=== PATIENT | male | born 1980 | race Caucasian/White ===

== ENCOUNTER 2018-12-22 16:38 | Emergency (ER) | payer SELFPAY ==
[~2018-12-22] VITALS: Ht 188 cm; Wt 108.0 kg
[~2018-12-22 16:38] MED LIST: DIAZ5TAB PO; DOCU-131 PO; ENOX40SY4 SQ; INDO25CA5 PO; OXYC-307 PO; OXYC10TA6 PO
--- NOTE | 2018-12-22 17:35 | NUR ---
PT MOVED ROOMS TO 38 WITH SITTER. ALL BELONGINGS IN LOCKER, 2 BAGS LABELED WITH PT STICKER, PT DENIES SI AT THIS TIME. WOULD LIKE LEG AND THROAT CHECKED WHILE HE IS HERE. PT TEAFUL BUT IN NAD. REPORT GIVEN TO BAMBI FOX.
--- NOTE | 2018-12-22 17:36 | NUR ---
Pt moved to room 38. Report from Blaise FOX. Pt is alert, oriented, with NAD. Pt is connected to the monitor. Call light within reach.
[2018-12-22 17:41] VITALS: BP 123/82
--- NOTE | 2018-12-22 17:47 | NUR ---
Provider at bedside.
--- NOTE | 2018-12-22 18:16 | NUR ---
Pt left AMA
== END 2018-12-22 18:18 | disposition left against medical advice (07) ==
LOC: ED 18:12
DX: F11.129 Opioid abuse with intoxication, unspecified (principal); E11.9 Type 2 diabetes mellitus without complications; Z72.9 Problem related to lifestyle, unspecified
CPT/HCPCS: 87070; 99283

== ENCOUNTER 2019-10-02 12:51 | Inpatient (IN) | payer OTHER ==
[~2019-10-02] VITALS: Ht 188 cm; Wt 123.0 kg
[~2019-10-02 12:51] MED LIST changes: +ETOMIDATE 20 MG/10 ML ONE; +INDO25CA22 PO; -INDO25CA5 PO; +PROPOFOL 10 MG/ML, 20ML ONE; +PROPOFOL 100 ML IV ONE; +SUCCINYLCHOLINE 20 MG/ML, 10ML ONE
[2019-10-02] MEDS ORDERED: SODIUM CHLORIDE FLUSH 10ML SYR IVF ONE (13:00)
[2019-10-02 13:13] LABS: MEAN CORPUSCULAR HEMOGLOBIN 30.8 pg (27.5-34.5); MEAN CORPUSCULAR HGB CONC 33.3 g/dL (33.2-36.2); MEAN CORPUSCULAR VOLUME 92.4 fL (81-97); MEAN PLATELET VOLUME 7.8 fL (7.4-10.4); PLATELET COUNT 286 x10^3/uL (130-400); RED BLOOD COUNT 5.59 x10^6/uL (4.38-5.82); RED CELL DISTRIBUTION WIDTH 12.7 % (9.4-14.8)
[2019-10-02 13:20] LABS: INTERNATIONAL NORMALIZED RATIO 0.98 (0.93-1.1); PROTHROMBIN TIME 10.3 Seconds (9.6-11.5)
[2019-10-02 13:24] LABS: ALANINE AMINOTRANSFERASE 53 U/L (12-78); ALBUMIN 3.7 g/dL (3.4-5.0); ANION GAP 12 mmol/L (5-15); CALCIUM 8.5 mg/dL (8.5-10.1); CHLORIDE 100 mmol/L (98-107); CREATININE 1.27 mg/dL (0.7-1.3)
[2019-10-02 13:28] LABS: ALKALINE PHOSPHATASE 88 U/L (45-117); BILIRUBIN,TOTAL 0.4 mg/dL (0.2-1.0); TOTAL PROTEIN 7.7 g/dL (6.4-8.2); TROPONIN I < 0.015 ng/mL (0.000-0.045)
[2019-10-02] MEDS ORDERED: MIDAZOLAM HCL 50 MG in SODIUM CHLORIDE 0.9% 240 ML IV PRN (13:30)
[2019-10-02] MEDS ORDERED: SUCCINYLCHOLINE 20 MG/ML, 10ML IVPush ONE (13:30)
[2019-10-02] MEDS ORDERED: ETOMIDATE 20 MG/10 ML IVPush ONE (13:30)
[2019-10-02 13:36] LABS: BASOPHILS # (AUTO) 0.07 x10^3/uL (0-0.1); BASOPHILS % (AUTO) 1 % (0-1); EOSINOPHILS # (AUTO) 0.42 x10^3/uL (0-0.4); EOSINOPHILS % (AUTO) 3 % (1-7); LYMPHOCYTES # (AUTO) 6.16 x10^3/uL (1-3.4); LYMPHOCYTES % (AUTO) 48 % (22-44); MD SCAN; MONOCYTES # (AUTO) 0.84 x10^3/uL (0.2-0.8); MONOCYTES % (AUTO) 7 % (2-9); NEUTROPHILS # (AUTO) 5.29 x10^3/uL (1.8-6.8); NEUTROPHILS % (AUTO) 41 % (42-75)
[2019-10-02] MEDS: PROPOFOL 100 ML IV PRN ×3 (13:45→21:02)
--- NOTE | 2019-10-02 13:51 | NUR ---
Note undone in EDM - 10/02/19 at 1359 by RFRUHLING PT ARRIVES TO ED VIA PRIVATE VEHICLE WITH SPOUSE. PTS SPOUSE REPORTED FINDING PARTNER DOWN AND GIVING NARCAN, NO COMPRESSIONS GIVEN AT HOME. PT WAS SOME WHAT RESPONISVE WITH NARCAN PUSHES BUT WAS HAVING DIFFICULTY BREATHING WITH A GCS OF 10. PT ALSO WAS COVERED IN EMESIS AND CONTINUED TO HAVE EMESIS. PT WAS DIAPHORETIC AND RED IN THE FACE ON ARRIVAL. PT WAS TAKEN TO [place] [id number] WHERE HE WAS GIVEN SUPPLEMENTAL OXYGEN BUT WAS UNABLE TO CORRECT BREATHING SO DR. JACKSON DECIDED TO INBUATE WITH A 8.0 TUBE SECURED AT 24CM. SEDATION USED WAS 100MG SUCCULYINE AND 20MG ETOMIDATE PT ALSO HAD A RAM CATH PLACED FOR STRICT. PT AFTER INTUBATION NEEDED SOME SEDATION WHICH DR. NUÑEZ PROVIDED 3X100 MG PROPAFOL PUSHES AND 5MG OF VERSED PUSH UNTIL A PROPOFOL AND VERSED DRIP WAS STARTED. PT THEN HAD MEDICAL RESTRIANTS APPLIED. PT HAS FLUIDS RUNNING. PTS VENT SETTINGS ARE AT 100%O2/16AC/55P/500TV/8PEEP. PT ALSO HAD TWO LARGE BORE PIVS PLACED IN BILATERAL AC AFTER INTIAL AC IV INFILTRATED.
--- NOTE | 2019-10-02 13:51 | NUR ---
PT ARRIVES TO ED VIA PRIVATE VEHICLE WITH SPOUSE. PTS SPOUSE REPORTED FINDING PARTNER DOWN AND GIVING NARCAN, NO COMPRESSIONS GIVEN AT HOME. PT WAS SOME WHAT RESPONISVE WITH NARCAN PUSHES BUT WAS HAVING DIFFICULTY BREATHING WITH A GCS OF 10. PT ALSO WAS COVERED IN EMESIS AND CONTINUED TO HAVE EMESIS. PT WAS DIAPHORETIC AND RED IN THE FACE ON ARRIVAL. PT WAS TAKEN TO [place] [id number] WHERE HE WAS GIVEN SUPPLEMENTAL OXYGEN BUT WAS UNABLE TO CORRECT BREATHING SO DR. JACKSON DECIDED TO INBUATE WITH A 8.0 TUBE SECURED AT 24CM. SEDATION USED WAS 100MG SUCCULYINE AND 20MG ETOMIDATE PT ALSO HAD A RAM CATH PLACED FOR STRICT. PT AFTER INTUBATION NEEDED SOME SEDATION WHICH DR. NUÑEZ PROVIDED 3X100 MG PROPAFOL PUSHES AND 5MG OF VERSED PUSH UNTIL A PROPOFOL AND VERSED DRIP WAS STARTED. PT THEN HAD MEDICAL RESTRIANTS APPLIED. PT HAS FLUIDS RUNNING. PTS VENT SETTINGS ARE AT 100%O2/16AC/55P/500TV/8PEEP. PT ALSO HAD TWO LARGE BORE PIVS PLACED IN BILATERAL AC AFTER INTIAL AC IV INFILTRATED.
[2019-10-02] MEDS ORDERED: FAMOTIDINE 20 MG/2 ML IV ONE (14:00)
[2019-10-02] MEDS ORDERED: SODIUM CHLORIDE 0.9% 1,000ML IVBOLUS ONE (14:00)
[2019-10-02] MEDS ORDERED: FAMOTIDINE 20 MG/2 ML ONE (14:15)
[2019-10-02] MEDS ORDERED: BIVALIRUDIN 250 MG ONE (14:58)
[2019-10-02] MEDS ORDERED: TICAGRELOR 90 MG TABLET ONE (14:58)
[2019-10-02] MEDS ORDERED: HEPARIN 1,000 UNITS/ML, 10ML ONE (14:58)
[2019-10-02] MEDS ORDERED: MIDAZOLAM 1 MG/ML, 5ML ONE (14:58)
[2019-10-02] MEDS ORDERED: FENTANYL PF 100 MCG/2ML ONE (14:58)
--- NOTE | 2019-10-02 14:58 | NUR ---
PT TRANSPORTED TO CCU, LINES AND DRIPS VERIFIED, PT HAD NEGATIVE TROP DOWNSTAIRS. PT TO HAVE NEW EKG FOR POSSIBLE NEW OH. CARE TRANSFERED NOW TO [facility].
[2019-10-02] MEDS ORDERED: LIDOCAINE 1%, 20ML ONE (14:59)
[2019-10-02] MEDS ORDERED: ENALAPRILAT 1.25 MG/ML, 2ML IVPush PRN (15:00)
[2019-10-02] MEDS ORDERED: BISACODYL 10 MG SUPP PR PRN ×2 (15:00→17:00)
[2019-10-02] MEDS ORDERED: ONDANSETRON 2MG/ML, 2ML IVPush PRN (15:00)
[2019-10-02] MEDS ORDERED: LABETALOL 5MG/ML, 20ML IVPush PRN (15:00)
[2019-10-02] MEDS ORDERED: POLYETHYLENE GLYCOL 17 GM PACKET PO PRN (15:00)
[2019-10-02] MEDS ORDERED: LORazepam 2 MG/ML, 1ML IVPush PRN (15:00)
[2019-10-02] MEDS ORDERED: PROPOFOL 100 ML IV ONE (15:19)
[2019-10-02 15:38] LABS: TROPONIN I < 0.015 ng/mL (0.000-0.045)
[2019-10-02 15:45] LABS: SALICYLATE LEVEL < 1.7 mg/dL (2.8-20.0)
[2019-10-02] MEDS ORDERED: SODIUM CHLORIDE 0.9% 1,000 ML IV SCH (15:45)
[2019-10-02 16:14] LABS: HEMOGLOBIN A1C 7.1 % (4.2-6.3)
[2019-10-02] MEDS: SODIUM CHLORIDE 0.9% 1,000 ML IV SCH (16:34)
[2019-10-02] MEDS: CEFTRIAXONE PMX 1GM/50ML 50 ML IV SCH (16:34)
[2019-10-02] MEDS: METRONIDAZOLE PMX 500MG/100ML 100 ML IV SCH ×2 (16:34→23:01)
[2019-10-02] MEDS ORDERED: DEXTROSE 4 GM TAB.CHEW PO PRN (17:00)
[2019-10-02] MEDS ORDERED: FUROSEMIDE 20 MG/2 ML IV ONE (17:00)
[2019-10-02] MEDS ORDERED: DEXTROSE 50%, 50ML SYRINGE IVPush PRN (17:00)
[2019-10-02] MEDS ORDERED: SENNA 176 MG/5 ML ORAL SOL NG PRN (17:00)
[2019-10-02] MEDS ORDERED: PHARMACY MAY ADJ FOR RENAL FX MC SCH (17:00)
[2019-10-02] MEDS ORDERED: LIDOCAINE-MPF 1%, 2ML ENDO PRN (17:00)
[2019-10-02] MEDS ORDERED: GLUCAGON 1 MG IM PRN (17:00)
[2019-10-02] MEDS ORDERED: SENNA/DOCUSATE TABLET NG PRN (17:00)
[2019-10-02] MEDS ORDERED: PROPOFOL 10 MG/ML, 20ML IV ONE (17:00)
[2019-10-02] MEDS ORDERED: LACTULOSE 20 GM/30 ML UDC NG PRN (17:00)
[2019-10-02] MEDS ORDERED: HEPARIN 5,000 UNITS/ML, 1ML SQ SCH (17:00)
[2019-10-02 17:18] LABS: PROTHROMBIN TIME 10.5 Seconds (9.6-11.5)
[2019-10-02 17:19] LABS: ANION GAP 6 mmol/L (5-15); CALCIUM 7.8 mg/dL (8.5-10.1); CHLORIDE 109 mmol/L (98-107); CREATININE 0.92 mg/dL (0.7-1.3); TRIGLYCERIDES 722 mg/dL (50-200)
[2019-10-02 17:28] LABS: BASOPHILS # (AUTO) 0.01 x10^3/uL (0-0.1); BASOPHILS % (AUTO) 0 % (0-1); EOSINOPHILS # (AUTO) 0.02 x10^3/uL (0-0.4); EOSINOPHILS % (AUTO) 0 % (1-7); LYMPHOCYTES # (AUTO) 0.72 x10^3/uL (1-3.4); LYMPHOCYTES % (AUTO) 9 % (22-44); MD SCAN; MEAN CORPUSCULAR HEMOGLOBIN 30.2 pg (27.5-34.5); MEAN CORPUSCULAR HGB CONC 33.6 g/dL (33.2-36.2); MEAN CORPUSCULAR VOLUME 89.9 fL (81-97); MONOCYTES # (AUTO) 0.19 x10^3/uL (0.2-0.8); MONOCYTES % (AUTO) 2 % (2-9); NEUTROPHILS # (AUTO) 7.49 x10^3/uL (1.8-6.8); NEUTROPHILS % (AUTO) 89 % (42-75); PLATELET COUNT 223 x10^3/uL (130-400); RED BLOOD COUNT 5.74 x10^6/uL (4.38-5.82); RED CELL DISTRIBUTION WIDTH 12.7 % (9.4-14.8)
[2019-10-02] MEDS: ENOXAPARIN 40 MG/0.4 ML SQ SCH (17:42)
[2019-10-02 17:50] LABS: MICROSCOPIC INDICATED
[2019-10-02] MEDS: INSULIN LISPRO 100 UNITS/ML, PEN SQ-INSULIN SCH ×2 (17:51→20:55)
[2019-10-02 17:59] LABS: CULTURE INDICATED? YES
[2019-10-02 18:02] LABS: AMPHETAMINE SCREEN, URINE Negative (Negative); BARBITURATE SCREEN, URINE Negative (Negative); BENZODIAZEPINE SCREEN, URINE Positive (Negative); CANNABINOID SCREEN, URINE Negative (Negative); COCAINE SCREEN, URINE Negative (Negative); METHADONE SCREEN, URINE Negative (Negative)
[2019-10-02 18:03] LABS: OPIATE SCREEN, URINE Positive (Negative)
[2019-10-02] MEDS: ALBUTEROL/IPRATROPIUM 2.5MG/0.5MG, 3 ML INLINE SCH ×2 (19:00→22:14)
[2019-10-02] MEDS: SODIUM CHLORIDE FLUSH 10ML SYR IVF SCH (20:49)
[2019-10-02] MEDS: INSULIN GLARGINE 100 UNITS/ML, PEN SQ-INSULIN SCH (20:56)
[2019-10-02] MEDS: FAMOTIDINE 20 MG/2 ML IVPush SCH (21:01)
[2019-10-03] MEDS: PROPOFOL 100 ML IV PRN ×8 (00:50→22:06)
[2019-10-03] MEDS: ALBUTEROL/IPRATROPIUM 2.5MG/0.5MG, 3 ML INLINE SCH ×6 (01:56→22:18)
[2019-10-03] MEDS: SODIUM CHLORIDE 0.9% 1,000 ML IV SCH ×3 (02:59→23:16)
[2019-10-03] MEDS: INSULIN LISPRO 100 UNITS/ML, PEN SQ-INSULIN SCH ×4 (03:04→20:59)
[2019-10-03] MEDS: MIDAZOLAM HCL 25 MG in SODIUM CHLORIDE 0.9% 245 ML IV PRN ×2 (03:35→19:37)
[2019-10-03 04:25] LABS: ALANINE AMINOTRANSFERASE 45 U/L (12-78); ALBUMIN 2.6 g/dL (3.4-5.0); ANION GAP 6 mmol/L (5-15); CALCIUM 7.2 mg/dL (8.5-10.1); CHLORIDE 108 mmol/L (98-107); CREATININE 0.98 mg/dL (0.7-1.3)
[2019-10-03 04:28] LABS: ALKALINE PHOSPHATASE 52 U/L (45-117); BILIRUBIN,TOTAL 0.6 mg/dL (0.2-1.0); CHOL/HDL RATIO 6.5; CHOLESTEROL, TOTAL 168 mg/dL (140-239); HDL CHOL % 15 % (26-37); HDL CHOLESTEROL (DIRECT) 26 mg/dL (40-60); TOTAL PROTEIN 5.7 g/dL (6.4-8.2); TRIGLYCERIDES 621 mg/dL (50-200)
[2019-10-03 04:31] LABS: MEAN CORPUSCULAR HEMOGLOBIN 30.5 pg (27.5-34.5); MEAN CORPUSCULAR HGB CONC 33.7 g/dL (33.2-36.2); MEAN CORPUSCULAR VOLUME 90.5 fL (81-97); MEAN PLATELET VOLUME 7.6 fL (7.4-10.4); PLATELET COUNT 189 x10^3/uL (130-400); RED BLOOD COUNT 5.08 x10^6/uL (4.38-5.82)
[2019-10-03 04:49] LABS: BASOPHILS # (AUTO) 0.02 x10^3/uL (0-0.1); BASOPHILS % (AUTO) 0 % (0-1); EOSINOPHILS # (AUTO) 0.06 x10^3/uL (0-0.4); EOSINOPHILS % (AUTO) 1 % (1-7); LYMPHOCYTES # (AUTO) 0.88 x10^3/uL (1-3.4); LYMPHOCYTES % (AUTO) 8 % (22-44); MD SCAN; MONOCYTES # (AUTO) 0.52 x10^3/uL (0.2-0.8); MONOCYTES % (AUTO) 5 % (2-9); NEUTROPHILS # (AUTO) 9.19 x10^3/uL (1.8-6.8); NEUTROPHILS % (AUTO) 86 % (42-75)
[2019-10-03] MEDS: METRONIDAZOLE PMX 500MG/100ML 100 ML IV SCH ×2 (06:31→16:37)
[2019-10-03] MEDS ORDERED: MAGNESIUM SULFATE IN WATER 50 ML IV ONE (07:30)
[2019-10-03] MEDS ORDERED: MAGNESIUM SULFATE PMX 4GM/100M 100 ML IVPB ONE (07:30)
[2019-10-03] MEDS: ENOXAPARIN 40 MG/0.4 ML SQ SCH (09:43)
[2019-10-03] MEDS: SENNA/DOCUSATE TABLET PO SCH (09:43)
[2019-10-03] MEDS: SODIUM CHLORIDE FLUSH 10ML SYR IVF SCH ×2 (09:44→20:58)
[2019-10-03] MEDS: ASPIRIN 81 MG TABLET CHEW PO SCH (09:44)
[2019-10-03] MEDS: FAMOTIDINE 20 MG/2 ML IVPush SCH ×2 (09:44→20:59)
--- NOTE | 2019-10-03 10:22 | NUR ---
TF GOAL: w/ propofol: VITAL HIGH PROTEIN @ 70ml/hr off propofol: 75ml/hr
[2019-10-03] MEDS: FENTANYL PF 100 MCG/2ML IVPush PRN ×4 (11:13→22:08)
[2019-10-03] MEDS: INSULIN GLARGINE 100 UNITS/ML, PEN SQ-INSULIN SCH ×2 (11:18→20:59)
[2019-10-03 14:20] LABS: MICROSCOPIC AUTO
[2019-10-03] MEDS: CEFTRIAXONE PMX 1GM/50ML 50 ML IV SCH (16:37)
[2019-10-04] MEDS: PROPOFOL 100 ML IV PRN ×8 (00:52→22:18)
[2019-10-04] MEDS: METRONIDAZOLE PMX 500MG/100ML 100 ML IV SCH ×3 (01:53→17:16)
[2019-10-04] MEDS: INSULIN LISPRO 100 UNITS/ML, PEN SQ-INSULIN SCH ×4 (02:41→21:01)
[2019-10-04] MEDS: ALBUTEROL/IPRATROPIUM 2.5MG/0.5MG, 3 ML INLINE SCH ×6 (03:00→22:03)
[2019-10-04] MEDS: MIDAZOLAM HCL 25 MG in SODIUM CHLORIDE 0.9% 245 ML IV PRN ×2 (04:45→22:31)
[2019-10-04 08:09] LABS: BASOPHILS # (AUTO) 0.05 x10^3/uL (0-0.1); BASOPHILS % (AUTO) 1 % (0-1); EOSINOPHILS # (AUTO) 0.41 x10^3/uL (0-0.4); EOSINOPHILS % (AUTO) 5 % (1-7); LYMPHOCYTES # (AUTO) 1.12 x10^3/uL (1-3.4); LYMPHOCYTES % (AUTO) 15 % (22-44); MD NO; MEAN CORPUSCULAR HEMOGLOBIN 30.3 pg (27.5-34.5); MEAN CORPUSCULAR HGB CONC 33.5 g/dL (33.2-36.2); MEAN CORPUSCULAR VOLUME 90.7 fL (81-97); MEAN PLATELET VOLUME 7.3 fL (7.4-10.4); MONOCYTES # (AUTO) 0.46 x10^3/uL (0.2-0.8); MONOCYTES % (AUTO) 6 % (2-9); NEUTROPHILS # (AUTO) 5.63 x10^3/uL (1.8-6.8); NEUTROPHILS % (AUTO) 73 % (42-75); PLATELET COUNT 157 x10^3/uL (130-400); RED BLOOD COUNT 4.16 x10^6/uL (4.38-5.82); RED CELL DISTRIBUTION WIDTH 13.3 % (9.4-14.8)
[2019-10-04] MEDS: SODIUM CHLORIDE FLUSH 10ML SYR IVF SCH ×2 (08:28→21:01)
[2019-10-04] MEDS: SENNA/DOCUSATE TABLET PO SCH (08:28)
[2019-10-04] MEDS: FAMOTIDINE 20 MG/2 ML IVPush SCH ×2 (08:28→21:00)
[2019-10-04] MEDS: ASPIRIN 81 MG TABLET CHEW PO SCH (08:28)
[2019-10-04 08:40] LABS: ALANINE AMINOTRANSFERASE 38 U/L (12-78); ALBUMIN 2.3 g/dL (3.4-5.0); ANION GAP 5 mmol/L (5-15); CHLORIDE 110 mmol/L (98-107); CREATININE 0.67 mg/dL (0.7-1.3)
[2019-10-04 08:43] LABS: ALKALINE PHOSPHATASE 52 U/L (45-117); BILIRUBIN,TOTAL 0.3 mg/dL (0.2-1.0); TOTAL PROTEIN 5.7 g/dL (6.4-8.2)
[2019-10-04] MEDS: INSULIN GLARGINE 100 UNITS/ML, PEN SQ-INSULIN SCH ×2 (09:47→21:01)
[2019-10-04] MEDS ORDERED: SODIUM PHOSPHATE 20 MMOL in SODIUM CHLORIDE 0.9% 500 ML IV ONE (10:00)
[2019-10-04] MEDS: CEFTRIAXONE PMX 1GM/50ML 50 ML IV SCH (14:48)
[2019-10-04] MEDS: ENOXAPARIN 40 MG/0.4 ML SQ SCH (14:58)
[2019-10-04] MEDS: FENTANYL PF 100 MCG/2ML IVPush PRN (17:51)
[2019-10-05] MEDS: METRONIDAZOLE PMX 500MG/100ML 100 ML IV SCH ×3 (01:28→18:17)
[2019-10-05] MEDS: PROPOFOL 100 ML IV PRN ×7 (01:30→23:33)
[2019-10-05] MEDS: ALBUTEROL/IPRATROPIUM 2.5MG/0.5MG, 3 ML INLINE SCH ×6 (03:00→22:30)
[2019-10-05] MEDS: INSULIN LISPRO 100 UNITS/ML, PEN SQ-INSULIN SCH ×4 (03:59→20:19)
[2019-10-05 05:01] LABS: BASOPHILS # (AUTO) 0.04 x10^3/uL (0-0.1); BASOPHILS % (AUTO) 1 % (0-1); EOSINOPHILS # (AUTO) 0.44 x10^3/uL (0-0.4); EOSINOPHILS % (AUTO) 6 % (1-7); LYMPHOCYTES # (AUTO) 0.73 x10^3/uL (1-3.4); LYMPHOCYTES % (AUTO) 10 % (22-44); MD NO; MEAN CORPUSCULAR HEMOGLOBIN 30.6 pg (27.5-34.5); MEAN CORPUSCULAR VOLUME 90.2 fL (81-97); MEAN PLATELET VOLUME 7.5 fL (7.4-10.4); MONOCYTES # (AUTO) 0.51 x10^3/uL (0.2-0.8); MONOCYTES % (AUTO) 7 % (2-9); NEUTROPHILS # (AUTO) 5.96 x10^3/uL (1.8-6.8); NEUTROPHILS % (AUTO) 78 % (42-75); PLATELET COUNT 184 x10^3/uL (130-400); RED BLOOD COUNT 3.96 x10^6/uL (4.38-5.82); RED CELL DISTRIBUTION WIDTH 12.7 % (9.4-14.8)
[2019-10-05 05:26] LABS: ALBUMIN 2.3 g/dL (3.4-5.0); ANION GAP 7 mmol/L (5-15); CALCIUM 8.2 mg/dL (8.5-10.1); CHLORIDE 110 mmol/L (98-107); CREATININE 0.62 mg/dL (0.7-1.3)
[2019-10-05] MEDS: FUROSEMIDE 40 MG/4 ML IV SCH ×2 (09:41→20:19)
[2019-10-05] MEDS: SODIUM CHLORIDE FLUSH 10ML SYR IVF SCH ×2 (09:42→20:19)
[2019-10-05] MEDS: SENNA/DOCUSATE TABLET PO SCH (09:42)
[2019-10-05] MEDS: ASPIRIN 81 MG TABLET CHEW PO SCH (09:42)
[2019-10-05] MEDS: FAMOTIDINE 20 MG/2 ML IVPush SCH ×2 (09:42→20:19)
[2019-10-05] MEDS: INSULIN GLARGINE 100 UNITS/ML, PEN SQ-INSULIN SCH ×4 (09:44→20:20)
[2019-10-05] MEDS: DEXMEDETOMIDINE 200 MCG in SODIUM CHLORIDE 0.9% 48 ML IV PRN ×3 (12:35→20:22)
[2019-10-05] MEDS: CEFTRIAXONE PMX 1GM/50ML 50 ML IV SCH (14:20)
[2019-10-05] MEDS: FENTANYL PF 100 MCG/2ML IVPush PRN (15:03)
[2019-10-05] MEDS: ENOXAPARIN 40 MG/0.4 ML SQ SCH (15:16)
[2019-10-06] MEDS: METRONIDAZOLE PMX 500MG/100ML 100 ML IV SCH ×3 (00:15→18:05)
[2019-10-06] MEDS: ALBUTEROL/IPRATROPIUM 2.5MG/0.5MG, 3 ML INLINE SCH ×2 (02:28→06:56)
[2019-10-06] MEDS: INSULIN LISPRO 100 UNITS/ML, PEN SQ-INSULIN SCH ×4 (03:00→21:28)
[2019-10-06] MEDS: PROPOFOL 100 ML IV PRN ×2 (03:05→04:40)
[2019-10-06] MEDS: DEXMEDETOMIDINE 200 MCG in SODIUM CHLORIDE 0.9% 48 ML IV PRN ×2 (03:25→08:53)
[2019-10-06 04:29] LABS: BASOPHILS # (AUTO) 0.05 x10^3/uL (0-0.1); BASOPHILS % (AUTO) 1 % (0-1); EOSINOPHILS # (AUTO) 0.68 x10^3/uL (0-0.4); EOSINOPHILS % (AUTO) 8 % (1-7); LYMPHOCYTES # (AUTO) 1.26 x10^3/uL (1-3.4); LYMPHOCYTES % (AUTO) 16 % (22-44); MD NO; MEAN CORPUSCULAR HEMOGLOBIN 30.7 pg (27.5-34.5); MEAN CORPUSCULAR HGB CONC 33.7 g/dL (33.2-36.2); MEAN CORPUSCULAR VOLUME 90.9 fL (81-97); MEAN PLATELET VOLUME 7.5 fL (7.4-10.4); MONOCYTES % (AUTO) 7 % (2-9); NEUTROPHILS # (AUTO) 5.56 x10^3/uL (1.8-6.8); NEUTROPHILS % (AUTO) 68 % (42-75); PLATELET COUNT 232 x10^3/uL (130-400); RED BLOOD COUNT 4.31 x10^6/uL (4.38-5.82); RED CELL DISTRIBUTION WIDTH 13.1 % (9.4-14.8)
[2019-10-06] MEDS: FENTANYL PF 100 MCG/2ML IVPush PRN (04:40)
[2019-10-06 05:55] LABS: ANION GAP 6 mmol/L (5-15); CALCIUM 8.6 mg/dL (8.5-10.1); CHLORIDE 107 mmol/L (98-107); CREATININE 0.66 mg/dL (0.7-1.3)
[2019-10-06] MEDS: SODIUM CHLORIDE FLUSH 10ML SYR IVF SCH ×2 (08:54→21:23)
[2019-10-06] MEDS: ASPIRIN 81 MG TABLET CHEW PO SCH (08:54)
[2019-10-06] MEDS: SENNA/DOCUSATE TABLET PO SCH (08:54)
[2019-10-06] MEDS: FAMOTIDINE 20 MG/2 ML IVPush SCH ×2 (08:54→21:23)
[2019-10-06] MEDS: INSULIN GLARGINE 100 UNITS/ML, PEN SQ-INSULIN SCH ×4 (09:00→21:29)
[2019-10-06] MEDS ORDERED: RACEPINEPHRINE INH 2.25%, 0.5ML NPPB PRN (09:30)
[2019-10-06] MEDS ORDERED: RACEPINEPHRINE INH 2.25%, 0.5ML ONE (09:30)
[2019-10-06] MEDS: CEFTRIAXONE PMX 1GM/50ML 50 ML IV SCH (15:20)
[2019-10-06] MEDS: ENOXAPARIN 40 MG/0.4 ML SQ SCH (15:20)
--- NOTE | 2019-10-06 16:56 | NUR ---
REC GROUND/NTL; ORANGE SHEET WITH DIET RECS AND SWALLOW STRATEGIES POSTED AT BEDSIDE. Addendum: 10/06/19 at 1657 by Orly BIANCHI Amended: Links added.
[2019-10-07] MEDS: METRONIDAZOLE PMX 500MG/100ML 100 ML IV SCH (01:16)
[2019-10-07] MEDS: ACETAMINOPHEN 325 MG TABLET PO PRN ×2 (01:51→21:49)
[2019-10-07 04:45] LABS: BASOPHILS # (AUTO) 0.09 x10^3/uL (0-0.1); BASOPHILS % (AUTO) 1 % (0-1); EOSINOPHILS # (AUTO) 0.76 x10^3/uL (0-0.4); EOSINOPHILS % (AUTO) 7 % (1-7); LYMPHOCYTES # (AUTO) 1.65 x10^3/uL (1-3.4); LYMPHOCYTES % (AUTO) 16 % (22-44); MD NO; MEAN CORPUSCULAR HEMOGLOBIN 30.4 pg (27.5-34.5); MEAN CORPUSCULAR HGB CONC 33.3 g/dL (33.2-36.2); MEAN CORPUSCULAR VOLUME 91.2 fL (81-97); MEAN PLATELET VOLUME 7.1 fL (7.4-10.4); MONOCYTES # (AUTO) 0.87 x10^3/uL (0.2-0.8); MONOCYTES % (AUTO) 8 % (2-9); NEUTROPHILS # (AUTO) 7.21 x10^3/uL (1.8-6.8); NEUTROPHILS % (AUTO) 68 % (42-75); PLATELET COUNT 281 x10^3/uL (130-400); RED BLOOD COUNT 4.52 x10^6/uL (4.38-5.82); RED CELL DISTRIBUTION WIDTH 12.6 % (9.4-14.8)
[2019-10-07 04:54] LABS: ANION GAP 7 mmol/L (5-15); CALCIUM 8.8 mg/dL (8.5-10.1); CHLORIDE 108 mmol/L (98-107); CREATININE 0.63 mg/dL (0.7-1.3)
[2019-10-07 06:46] VITALS: BP 142/89
[2019-10-07] MEDS: INSULIN LISPRO 100 UNITS/ML, PEN SQ-INSULIN SCH ×4 (07:00→21:00)
--- NOTE | 2019-10-07 10:19 | NUR ---
REC UPGRADE TO REGULAR/THINS; ORANGE SHEET WITH DIET RECS AND SWALLOW STRATEGIES POSTED AT BEDSIDE. Addendum: 10/07/19 at 1019 by Orly BIANCHI Amended: Links added.
[2019-10-07] MEDS: SODIUM CHLORIDE FLUSH 10ML SYR IVF SCH ×2 (10:21→21:50)
[2019-10-07] MEDS: SENNA/DOCUSATE TABLET PO SCH (10:21)
[2019-10-07] MEDS: ASPIRIN 81 MG TABLET CHEW PO SCH (10:21)
[2019-10-07] MEDS: INSULIN GLARGINE 100 UNITS/ML, PEN SQ-INSULIN SCH ×2 (10:22→21:49)
[2019-10-07 13:43] VITALS: BP 144/73
[2019-10-07] MEDS: ENOXAPARIN 40 MG/0.4 ML SQ SCH (15:40)
[2019-10-07] MEDS: CEFTRIAXONE PMX 1GM/50ML 50 ML IV SCH (15:40)
[2019-10-07 18:54] VITALS: BP 153/89
[2019-10-08 00:56] VITALS: BP 163/99
[2019-10-08 05:34] LABS: MEAN CORPUSCULAR HEMOGLOBIN 30.4 pg (27.5-34.5); MEAN CORPUSCULAR HGB CONC 34.1 g/dL (33.2-36.2); MEAN CORPUSCULAR VOLUME 89.3 fL (81-97); MEAN PLATELET VOLUME 6.9 fL (7.4-10.4); PLATELET COUNT 327 x10^3/uL (130-400); RED BLOOD COUNT 4.72 x10^6/uL (4.38-5.82); RED CELL DISTRIBUTION WIDTH 12.4 % (9.4-14.8)
[2019-10-08 05:40] LABS: ALANINE AMINOTRANSFERASE 44 U/L (12-78); ALBUMIN 2.8 g/dL (3.4-5.0); ANION GAP 6 mmol/L (5-15); CALCIUM 9.1 mg/dL (8.5-10.1); CHLORIDE 104 mmol/L (98-107)
[2019-10-08 05:41] LABS: ALKALINE PHOSPHATASE 64 U/L (45-117); BILIRUBIN,TOTAL 0.5 mg/dL (0.2-1.0); CREATININE 0.58 mg/dL (0.7-1.3); TOTAL PROTEIN 6.9 g/dL (6.4-8.2)
[2019-10-08 05:59] LABS: BASOPHILS # (AUTO) 0.03 x10^3/uL (0-0.1); BASOPHILS % (AUTO) 0 % (0-1); EOSINOPHILS # (AUTO) 0.76 x10^3/uL (0-0.4); EOSINOPHILS % (AUTO) 6 % (1-7); LYMPHOCYTES # (AUTO) 1.56 x10^3/uL (1-3.4); LYMPHOCYTES % (AUTO) 12 % (22-44); MD SCAN; MONOCYTES % (AUTO) 9 % (2-9); NEUTROPHILS # (AUTO) 9.25 x10^3/uL (1.8-6.8); NEUTROPHILS % (AUTO) 73 % (42-75)
[2019-10-08 07:35] VITALS: BP 151/90
[2019-10-08] MEDS: ASPIRIN 81 MG TABLET CHEW PO SCH (08:20)
[2019-10-08] MEDS: SODIUM CHLORIDE FLUSH 10ML SYR IVF SCH ×2 (08:20→21:47)
[2019-10-08] MEDS: INSULIN LISPRO 100 UNITS/ML, PEN SQ-INSULIN SCH ×4 (08:20→21:57)
[2019-10-08] MEDS: INSULIN GLARGINE 100 UNITS/ML, PEN SQ-INSULIN SCH ×2 (08:20→21:57)
[2019-10-08] MEDS: SENNA/DOCUSATE TABLET PO SCH (08:20)
[2019-10-08 13:49] VITALS: BP 152/88
[2019-10-08] MEDS: CEFTRIAXONE PMX 1GM/50ML 50 ML IV SCH (16:24)
[2019-10-08] MEDS: ENOXAPARIN 40 MG/0.4 ML SQ SCH (16:32)
[2019-10-08 18:14] VITALS: BP 178/97
[2019-10-08] MEDS: METOPROLOL TARTRATE 25 MG TABLET PO SCH (18:18)
[2019-10-08 19:20] VITALS: BP 150/79
[2019-10-08] MEDS: ACETAMINOPHEN 325 MG TABLET PO PRN (21:46)
[2019-10-08] MEDS: ATORVASTATIN 40 MG TABLET PO SCH (21:47)
[2019-10-08] MEDS: MELATONIN 5 MG TABLET PO PRN (21:47)
[2019-10-09 01:28] VITALS: BP 148/82
[2019-10-09] MEDS: METOPROLOL TARTRATE 25 MG TABLET PO SCH ×2 (06:13→17:51)
[2019-10-09] MEDS: ACETAMINOPHEN 325 MG TABLET PO PRN (06:15)
[2019-10-09 07:03] VITALS: BP 146/87
[2019-10-09] MEDS: SODIUM CHLORIDE FLUSH 10ML SYR IVF SCH ×2 (08:26→21:08)
[2019-10-09] MEDS: ASPIRIN 81 MG TABLET CHEW PO SCH (08:26)
[2019-10-09] MEDS: KETOROLAC 30 MG/1 ML IVPush SCH ×3 (08:26→21:07)
[2019-10-09] MEDS: INSULIN LISPRO 100 UNITS/ML, PEN SQ-INSULIN SCH ×4 (08:26→21:19)
[2019-10-09] MEDS: INSULIN GLARGINE 100 UNITS/ML, PEN SQ-INSULIN SCH ×2 (08:27→21:18)
[2019-10-09] MEDS: SENNA/DOCUSATE TABLET PO SCH (08:28)
[2019-10-09 12:55] VITALS: BP 125/56
[2019-10-09 17:47] VITALS: BP 145/83
[2019-10-09] MEDS: CEFTRIAXONE PMX 1GM/50ML 50 ML IV SCH (17:50)
[2019-10-09] MEDS: ENOXAPARIN 40 MG/0.4 ML SQ SCH (17:51)
[2019-10-09 19:37] VITALS: BP 120/63
[2019-10-09] MEDS: MELATONIN 5 MG TABLET PO PRN (21:07)
[2019-10-09] MEDS: ATORVASTATIN 40 MG TABLET PO SCH (21:07)
[2019-10-10 00:16] VITALS: BP 134/82
[2019-10-10] MEDS: KETOROLAC 30 MG/1 ML IVPush SCH ×4 (02:30→20:06)
[2019-10-10] MEDS: METOPROLOL TARTRATE 25 MG TABLET PO SCH ×2 (05:45→17:15)
[2019-10-10 06:03] LABS: BASOPHILS # (AUTO) 0.06 x10^3/uL (0-0.1); BASOPHILS % (AUTO) 1 % (0-1); EOSINOPHILS # (AUTO) 0.94 x10^3/uL (0-0.4); EOSINOPHILS % (AUTO) 10 % (1-7); LYMPHOCYTES # (AUTO) 2.48 x10^3/uL (1-3.4); LYMPHOCYTES % (AUTO) 25 % (22-44); MD NO; MEAN CORPUSCULAR HEMOGLOBIN 30.2 pg (27.5-34.5); MEAN CORPUSCULAR HGB CONC 33.2 g/dL (33.2-36.2); MONOCYTES % (AUTO) 8 % (2-9); NEUTROPHILS # (AUTO) 5.55 x10^3/uL (1.8-6.8); NEUTROPHILS % (AUTO) 57 % (42-75); PLATELET COUNT 349 x10^3/uL (130-400); RED BLOOD COUNT 4.74 x10^6/uL (4.38-5.82); RED CELL DISTRIBUTION WIDTH 12.6 % (9.4-14.8)
[2019-10-10 06:07] LABS: CHLORIDE 106 mmol/L (98-107)
[2019-10-10 06:14] LABS: ALANINE AMINOTRANSFERASE 43 U/L (12-78); ALBUMIN 2.7 g/dL (3.4-5.0); ALKALINE PHOSPHATASE 54 U/L (45-117); ANION GAP 6 mmol/L (5-15); BILIRUBIN,TOTAL 0.5 mg/dL (0.2-1.0); CALCIUM 8.7 mg/dL (8.5-10.1); CREATININE 0.68 mg/dL (0.7-1.3); TOTAL PROTEIN 6.8 g/dL (6.4-8.2)
[2019-10-10 06:37] VITALS: BP 126/76
[2019-10-10] MEDS: INSULIN LISPRO 100 UNITS/ML, PEN SQ-INSULIN SCH ×4 (07:29→20:19)
[2019-10-10] MEDS: ASPIRIN 81 MG TABLET CHEW PO SCH (08:15)
[2019-10-10] MEDS: SENNA/DOCUSATE TABLET PO SCH (08:16)
[2019-10-10] MEDS: INSULIN GLARGINE 100 UNITS/ML, PEN SQ-INSULIN SCH ×2 (08:16→20:20)
[2019-10-10] MEDS: SODIUM CHLORIDE FLUSH 10ML SYR IVF SCH ×2 (08:16→20:20)
[2019-10-10 12:23] VITALS: BP 129/76
[2019-10-10] MEDS: ENOXAPARIN 40 MG/0.4 ML SQ SCH (17:00)
[2019-10-10] MEDS: CEFTRIAXONE PMX 1GM/50ML 50 ML IV SCH (18:41)
[2019-10-10 19:52] VITALS: BP 148/90
[2019-10-10] MEDS: ATORVASTATIN 40 MG TABLET PO SCH (20:05)
[2019-10-10] MEDS: MELATONIN 5 MG TABLET PO PRN (21:28)
[2019-10-11 01:20] VITALS: BP 144/77
[2019-10-11] MEDS: KETOROLAC 30 MG/1 ML IVPush SCH ×4 (02:35→20:09)
[2019-10-11] MEDS: METOPROLOL TARTRATE 25 MG TABLET PO SCH (06:25)
[2019-10-11] MEDS: INSULIN LISPRO 100 UNITS/ML, PEN SQ-INSULIN SCH ×4 (07:00→20:14)
[2019-10-11 08:02] VITALS: BP 154/92
[2019-10-11] MEDS: SODIUM CHLORIDE FLUSH 10ML SYR IVF SCH ×2 (09:00→20:10)
[2019-10-11] MEDS ORDERED: INSU100I13 SQ-INSULIN (09:39)
[2019-10-11] MEDS ORDERED: ATOR40TA78 PO (09:39)
[2019-10-11] MEDS ORDERED: METO-93 PO (09:39)
[2019-10-11] MEDS ORDERED: ASPI-515 PO (09:39)
[2019-10-11] MEDS: ASPIRIN 81 MG TABLET CHEW PO SCH (09:47)
[2019-10-11] MEDS: INSULIN GLARGINE 100 UNITS/ML, PEN SQ-INSULIN SCH ×2 (09:47→20:16)
[2019-10-11 14:56] VITALS: BP 148/82
[2019-10-11] MEDS: ENOXAPARIN 40 MG/0.4 ML SQ SCH (17:57)
[2019-10-11] MEDS: ATORVASTATIN 40 MG TABLET PO SCH (20:10)
[2019-10-11 20:23] VITALS: BP 159/75
[2019-10-11] MEDS: MELATONIN 5 MG TABLET PO PRN (22:41)
[2019-10-12 00:47] VITALS: BP 138/66
[2019-10-12] MEDS: KETOROLAC 30 MG/1 ML IVPush SCH ×2 (02:30→07:14)
[2019-10-12] MEDS ORDERED: IBUPROFEN 200 MG TABLET PO PRN (03:00)
[2019-10-12] MEDS ORDERED: METOPROLOL SUCCINATE 50 MG TAB.ER.24H PO SCH (06:00)
[2019-10-12] MEDS: SODIUM CHLORIDE FLUSH 10ML SYR IVF SCH (09:00)
[2019-10-12] MEDS: INSULIN GLARGINE 100 UNITS/ML, PEN SQ-INSULIN SCH (09:55)
[2019-10-12] MEDS: ASPIRIN 81 MG TABLET CHEW PO SCH (09:56)
[2019-10-12] MEDS: INSULIN LISPRO 100 UNITS/ML, PEN SQ-INSULIN SCH ×3 (09:56→16:00)
[2019-10-12 09:59] VITALS: BP 138/77
[2019-10-12 15:59] VITALS: BP 125/77
== END 2019-10-12 18:30 | DRG 917 ==
LOC: ED 13:59 → EDIP 14:00 → CCU 14:32 → 5SO 10-07 06:47 → 3N 10-12 00:06
PROVIDERS: ADMIT Internal Medicine; ATTEND Hospitalist
PROC: 0BH17EZ Insertion of Endotracheal Airway into Trachea, Via Natural or Artificial Opening (ICD-10-PCS; principal; 2019-10-02)
PROC: 0T9B70Z Drainage of Bladder with Drainage Device, Via Natural or Artificial Opening (ICD-10-PCS; 2019-10-02)
PROC: 5A1945Z Respiratory Ventilation, 24-96 Consecutive Hours (ICD-10-PCS; 2019-10-02)
PROC: 4A023N7 Measurement of Cardiac Sampling and Pressure, Left Heart, Percutaneous Approach (ICD-10-PCS; 2019-10-02)
PROC: B2111ZZ Fluoroscopy of Multiple Coronary Arteries using Low Osmolar Contrast (ICD-10-PCS; 2019-10-02)
PROC: B2151ZZ Fluoroscopy of Left Heart using Low Osmolar Contrast (ICD-10-PCS; 2019-10-02)
DX: T40.1X2A Poisoning by heroin, intentional self-harm, initial encounter (principal); G92 Toxic encephalopathy; I21.4 Non-ST elevation (NSTEMI) myocardial infarction; J15.3 Pneumonia due to streptococcus, group B; J69.0 Pneumonitis due to inhalation of food and vomit; J96.01 Acute respiratory failure with hypoxia; J96.02 Acute respiratory failure with hypercapnia; E87.2 Acidosis; F11.20 Opioid dependence, uncomplicated; Z99.11 Dependence on respirator [ventilator] status; E11.65 Type 2 diabetes mellitus with hyperglycemia; F12.90 Cannabis use, unspecified, uncomplicated; F15.21 Other stimulant dependence, in remission; F17.210 Nicotine dependence, cigarettes, uncomplicated; F39 Unspecified mood [affective] disorder; G47.33 Obstructive sleep apnea (adult) (pediatric); I11.9 Hypertensive heart disease without heart failure; I25.10 Atherosclerotic heart disease of native coronary artery without angina pectoris; M65.88 Other synovitis and tenosynovitis, other site; I45.10 Unspecified right bundle-branch block; M17.12 Unilateral primary osteoarthritis, left knee; Y92.89 Other specified places as the place of occurrence of the external cause; Z91.5 Personal history of self-harm; Z88.0 Allergy status to penicillin
CPT/HCPCS: 36415; 36600; 73110; 93458; 96374; 99291; C8929; J3490; J7620; 71045; 80048; 80053; 80061; 80074; 80307; 81001; 82040; 82803; 82962; 83036; 83605; 83735; 83880; 84100; 84443; 84478; 84484; 85025; 85610; 85730; 86592; 87040; 87070; 87081; 87086; 87147; 87205; 87389; 93005; 94002; 94003; 94150; 94640; 99156; 99157; C1769; C1894; G0378; J0583; J0696; J1644; J1650; J1885; J1940; J2250; J2704; J3010; Q9957; C1887; J0330; J1815; J3475; J7030; J7040; J7050; Q9967